=== PATIENT | female | born 1950 | race Caucasian/White ===

== ENCOUNTER 2020-06-15 08:05 | Outpatient (CLI) | payer MEDICARE, SELFPAY ==
--- NOTE | ~2020-06-15 | US_ITS ---
EXAMINATION: US right upper quadrant EXAM DATE: 06/15/2020 09:05 INDICATION: Nausea. Right upper quadrant pain. TECHNIQUE: Multiple grayscale and Doppler images of the abdomen right upper quadrant were obtained (b y a technologist who performed the scan) and subsequently reviewed. There is no prior study for [place]. FINDINGS: The pancreatic head and body are normal in appearance. The pancreatic tail is not visualized. The l iver has normal echogenicity and contour. There are no focal liver lesions identified. There is no evidence of intrahepatic biliary duct dilation. Portal venous flow was seen in the hepatopedal, nor mal direction and has normal Doppler waveform. No right-sided hydronephrosis. Common bile duct measures 2 mm, which is normal. The gallbladder wall is normal in thickness, with ex pected amount of distention. No sonographic evidence of pericholecystic fluid. There is no cholelit hiases. Technologist performing exam reports patient did not demonstrate sonographic Alexandra's sign. Please note that this sign is less reliable in patients who have received pain medication. IMPRESSION: 1. Unremarkable abdominal ultrasound exam. Reviewed, dictated and finalized at location B.
== END 2020-06-15 08:06 | disposition home or self-care (01) ==
PROVIDERS: PCP Internal Medicine; Visit Provider Internal Medicine
DX: R11.0 Nausea (principal)
CPT/HCPCS: 76705

== ENCOUNTER 2022-08-23 16:12 | Inpatient (IN) | payer MEDICARE, SELFPAY ==
[2022-08-23] VITALS (9 sets, daily range): BP systolic 103–145; BP diastolic 60–77; PULSE 85–102; RESP 14–30; TEMP 36.9–37.7; O2SAT 91–97; BMI 27.8
--- NOTE | ~2022-08-23 | US_ITS ---
EXAMINATION:US venous doppler LE BI INDICATION:Thrombosis of the ovarian vein. TECHNIQUE: Multiple grayscale, color flow and Doppler images of the right and left lower extremity de ep venous systems were obtained and reviewed. COMPARISON:No prior studies for comparison. FINDINGS: The common femoral, superficial femoral and popliteal veins demonstrate normal respiratory variation, augmentation and compressibility. Color flow is also seen within the posterior tibial, pe roneal, greater saphenous and profunda veins. IMPRESSION: 1: No lower extremity deep venous thrombosis. Reviewed, dictated and finalized at location A.
--- NOTE | ~2022-08-23 | CT_ITS ---
EXAMINATION: CT abdomen pelvis w con DATE: 08/23/2022 17:58 INDICATION: Generalized abdominal pain. TECHNIQUE: Computed tomography (CT) of the abdomen and pelvis was performed with 100 mL Omnipaque 350 intravenous contrast. Automated exposure control and iterative reconstruction technique were employe d. The dose-length product was 598.39 mGy-cm. COMPARISON: Ultrasound 06/15/2020 FINDINGS: The visualized portions of the lung bases demonstrate mild atelectasis. No pleural effusion . The heart size is normal. No pericardial effusion. The liver and spleen are normal. The gallbladder is normal in size. Gallbladder wall thickening is noted. The pancreas, adrenal glands, and kidneys a re normal. There is a left inguinal hernia containing fat. There is diverticulosis of the colon witho ut evidence of diverticulitis. The appendix is normal. Left ovarian vein is dilated. There is thrombu s in left ovarian vein. There are no pathologically enlarged lymph nodes. There is no free intraperit sesay fluid. There is severe thoracic and lumbar spondylosis. IMPRESSION: 1. Thrombosis of left ovarian vein. 2. Gallbladder wall thickening, which may be seen with interstitial edema, chronic liver disease, or chronic cholecystitis. 3. Left inguinal hernia containing fat. Reviewed, dictated and finalized at location A. IMPRESSION: 1. Thrombosis of left ovarian vein. 2. Gallbladder wall thickening, which may be seen with interstitial edema, grinder chipper olivia liver disease, or chronic cholecystitis. 3. Left inguinal hernia containing fat.
--- NOTE | ~2022-08-23 | XR_ITS ---
EXAMINATION: XR chest 1V portable INDICATION: Cough TECHNIQUE: Portable AP chest at 1716 hours COMPARISON: None available FINDINGS: The lungs are free of acute opacities. No pleural effusion or pneumothorax. The cardiomedia stinal silhouette is normal. IMPRESSION: 1. No acute cardiopulmonary abnormality. Reviewed, dictated and finalized at location A.
--- NOTE | ~2022-08-23 | US_ITS ---
US right upper quadrant INDICATION: Right upper quadrant pain PROCEDURE: Realtime right upper abdominal ultrasound. COMPARISON: No prior studies for comparison. FINDINGS: The pancreas is normal without focal mass or pancreatic ductal dilation. Liver echotexture is normal without focal mass or intrahepatic biliary dilatation. There is normal directional flow i n the portal vein. There is mild gallbladder wall thickening with internal sludge. No definite gallstones are identified . Common bile duct measures 4 mm. No sonographic Alexandra's sign. IMPRESSION: 1: Gallbladder sludge with gallbladder wall thickening. No biliary dilatation. Reviewed, dictated and finalized at location A.
--- NOTE | ~2022-08-23 | US_ITS ---
EXAMINATION: US pelvic complete w TV DATE: 08/24/2022 13:37 INDICATION: Left lower quadrant pain. Comparison:No prior studies for comparison. TECHNIQUE: Multiple transabdominal sonographic images of the pelvis performed. Examination limited du e to poor bladder filling. FINDINGS: The uterus measures 8.1 x 4.5 x 5 cm. The endometrium is not identified for measurement. Th e ovaries are not visualized. There is no free fluid in the pelvis. There are no abnormal masses seen on either side. IMPRESSION: 1. Unremarkable pelvic ultrasound. Limited study. Reviewed, dictated and finalized at location A.
--- NOTE | 2022-08-23 16:40 | PC.NURSE ---
Pt attempted to provide urine sample but unable to at this time
[2022-08-23] MEDS: SODIUM CHLORIDE 0.9% IV 1,000 ML 999 ML IV CONT (16:49)
[2022-08-23] MEDS: ONDANSETRON INJ 4 MG/2 ML VIAL IV PUSH (16:50)
[2022-08-23 16:59] LABS: Basophils Percent Auto 0.1 % (0.2-1.2); Eosinophils Absolute Auto 0.1 K/mm3 (0-0.3); Eosinophils Percent Auto 0.7 % (0-4.4); Hematocrit 37.2 % (37.0-47.0); Hemoglobin 12.5 g/dL (12.0-15.0); Immature Granulocyte Absolute 0.09 K/mm3 (0.00-0.031); Immature Granulocyte Percent A 1.2 % (0-0.5); Lymphocytes Absolute Auto 2.06 K/mm3 (0.9-3.2); Lymphocytes Percent Auto 28.5 % (18.3-44.2); Mean Corpuscular HGB Conc 33.6 g/dl (32-36); Mean Corpuscular Hemoglobin 30.4 pg (26-34); Mean Corpuscular Volume 90.5 fl (80-100); Mean Platelet Volume 9.1 fl (7.4-10.4); Monocytes Absolute Auto 0.6 K/mm3 (0.1-0.6); Monocytes Percent Auto 8.7 % (2.6-8.5); Neutrophils Absolute Auto 4.4 K/mm3 (1.3-6.7); Neutrophils Percent Auto 60.8 % (45.5-73.1); Platelet Count Result 318 k/mm3 (150-375); Red Blood Count 4.11 M/mm3 (4.2-5.4); Red Cell Distribution Width 12.7 % (11.5-14.5); White Blood Count 7.2 K/mm3 (4.5-10.0)
[2022-08-23 17:09] LABS: Alanine Aminotransferase 47 U/L (6-35); Alkaline Phosphatase 83 U/L (38-126); Anion Gap 10 mmol/L (8-16); Aspartate Amino Transferase 57 U/L (14-36); Bilirubin,Total 0.6 mg/dL (0.2-1.3); Blood Urea Nitrogen 13 mg/dL (7-17); Calcium 8.5 mg/dL (8.4-10.2); Carbon Dioxide 26 mmol/L (22-30); Chloride 102 mmol/L (98-107); Estimated CRCL calculation 44 ml/min; Estimated Glomerular Filt Rate 55; Glucose 108 mg/dL (65-110); Lipase 788 U/L (23-300); Magnesium 1.5 mg/dL (1.6-2.3); Sodium 138 mmol/L (137-145)
[2022-08-23 17:36] LABS: SARS-CoV-2 RNA PCR Negative
[2022-08-23] MEDS: LACTATED RINGERS 1,000 ML 999 ML IV CONT (18:08)
[2022-08-23 18:28] LABS: Appearance Urine Clear (Clear); Bilirubin Urine Negative (Negative); Blood Urine 3+ (Negative); Color Urine Yellow (Yellow); Glucose Urine UA Negative (Negative); Ketones Urine Negative (Negative); Leukocyte Esterase Ur Trace LEU/UL (Negative); Nitrate Urine Negative (Negative); Protein Urine Trace mg/dL (Negative); Specific Grav Ur <= 1.005 (1.001-1.035); Urobilinogen Urine 0.2 mg/dL (<2.0)
[2022-08-23 18:31] LABS: Mucus Urine Rare /lpf; RBC Urine 21-50 /hpf (0-2); Squamous Epithelial Cell Urine Occasional /hpf (Few); WBC Urine 31-50 /hpf
[2022-08-23 18:32] LABS: Add Urine Microscopic? YES
[2022-08-23 18:58] LABS: Influenza A QL RT-PCR Negative (Negative); Influenza B QL RT-PCR Negative (Negative)
--- NOTE | 2022-08-23 19:46 | ED.NAVMDI ---
HPI - Nausea/Vomiting/Diarrhea General Chief complaint: Nausea/Vomiting/Diarrhea Stated complaint: diarrhea, decreased appetite Time Seen by Provider: 08/23/22 16:29 History of Present Illness HPI Narrative: Patient is a 72-year-old female who presents ER with persistent nausea as well as urinary frequency and urgency. Patient has had nausea for approximately 1 month. Initially seen by her PCP and started on a PPI. Patient then went to [place] for vacation and became very ill with nausea vomiting diarrhea. She was in bed for several days and cannot get up to enjoy herself. She then returned home where she has been feeling persistently nauseous and ill. She is not been eating due to this discomfort. Patient has had no fevers or chills. Diarrhea his abated. She began having burning urination and urinary frequency today. She is also obtained some antiemetics which have not helped her nausea. Related Data Home Medications Medication Instructions Recorded Confirmed cyclosporine 0.05 % eye drops in a 1 drp EACH EYE Q12H 08/23/22 08/23/22 dropperette (Restasis) ezetimibe 10 mg tablet 10 mg PO QAM 08/23/22 08/23/22 levothyroxine 25 mcg tablet 25 mcg PO DAILY 08/23/22 08/23/22 pravastatin 20 mg tablet 20 mg PO HS 08/23/22 08/23/22 Allergies Allergy/AdvReac Type Severity Reaction Status Date / Time amoxicillin Allergy Mild rash Verified 08/23/22 16:54 Review of Systems Review of Systems: All systems reviewed & are unremarkable except as noted in HPI and below Constitutional: Constitutional: Denies chills, Reports fatigue and Denies fever(s) ENT: Denies nasal congestion and Denies sore throat Cardiovascular: Cardiovascular: Denies chest pain, Denies rapid heart rate and Denies radiating jaw, neck or arm pain Respiratory: Respiratory: Denies chest congestion, Denies cough and Denies dyspnea Gastrointestinal: Gastrointestinal: Denies abdominal pain, Reports diarrhea, Reports nausea and Reports vomiting Genitourinary: Genitourinary: Reports nocturia and Reports dysuria Musculoskeletal: Musculoskeletal: Denies arthralgias and Denies joint swelling PMF Past Medical History Medical History (Updated 08/23/22 @ 22:12 by Dustin Toledo MD) Dermatomyositis Surgical History Surgical History (Updated 08/23/22 @ 22:08 by Dustin Toledo MD) No pertinent past surgical history Family History Family History (Updated 08/23/22 @ 21:40 by Yomaira Michelle RN) Father Diabetes mellitus Chronic ITP (idiopathic thrombocytopenia) Grandparent Diabetes mellitus Social History Social History Smoking status: Never smoker Alcohol intake: current Drinks per week: 12 Substance use: never Has the Lack of Transportation Kept You From Medical Appointments or From Getting Medications?: No Within the Past 12 Months, Were You Worried Whether Your Food Would Run Out Before You Got Money to Buy More?: Never True What is Your Housing Situation Today?: I Have Housing Are You Worried That in the Next 2 Months, You May Not Have Your Own Housing to Live In?: No Do You Have Trouble Paying Your Heating Or Electricity Bill?: No Do You Have Trouble Paying For Medicines?: No Are You Currently Unemployed and Looking for Work?: No Highest Level of Education Completed: Master's Degree or Higher Do You Have Trouble With Childcare or the Care of a Family Member?: No Spiritual care concerns: No Exam Narrative: GENERAL: Well-appearing, well-nourished, and in no acute distress. HEAD: Normocephalic, atraumatic. EYES: PERRL and EOMI. ENT: Dry mucous membranes. CHEST: Clear to auscultation. No respiratory distress. HEART: Regular rate and rhythm. Normal peripheral pulses. ABDOMEN: Soft, tender palpation left lower quadrant with guarding, nondistended, normal active bowel sounds. EXTREMITIES: Normal range of motion. No edema. SKIN: Warm, dry, no rash. NEURO: Alert and oriented x3. PSYCH: Normal mood and affe
[2022-08-23] MEDS: POTASSIUM CHLORIDE 20 MEQ TABLET.ER PO (20:13)
[2022-08-23] MEDS: ENOXAPARIN 80 MG/0.8 ML SYRINGE 71 MG SUB-Q (20:13)
--- NOTE | 2022-08-23 20:15 | PM.IMHP ---
H&P: HPI History of Present Illness Date/Time: 08/23/22 20:15 Chief Complaint: Nausea and vomiting Narrative: This is a 72-year-old female with past medical history significant for dermatomyositis, hypothyroidism, type 2 diabetes mellitus, dyslipidemia. Patient comes to the emergency room after several days of generalized malaise, nausea, vomiting, diarrhea, poor appetite, chills recently came back from [place] where she was sick as well. Now the diarrhea has subsided. however patient has been having urinary frequency, urgency, pain and burning with urination. preliminary workup was significant for CT of abdomen and pelvis was reported as: IMPRESSION: 1. Thrombosis of left ovarian vein. 2. Gallbladder wall thickening, which may be seen with interstitial edema, chronic liver disease, or chronic cholecystitis. 3. Left inguinal hernia containing fat. a urinalysis showed numerous wbc's 30-50 per high-power field. patient was given a dose of Lovenox and Rocephin in the emergency room , has been admitted for further evaluation management and treatment. Review of Systems Review of Systems: Generalized malaise, nausea, vomiting, abdominal pain, urinary frequency, urinary urgency, chills, poor appetite, diarrhea. Constitutional: Constitutional: Reports chills, Reports malaise, Reports poor appetite and Reports weakness Eyes: Eyes: Denies change in vision ENT: Denies dysphagia, Denies vertigo, Denies dizziness and Denies odynophagia Cardiovascular: Cardiovascular: Denies chest pain and Denies leg edema Respiratory: Respiratory: Denies cough Gastrointestinal: Gastrointestinal: Reports abdominal pain, Denies dyspepsia, Denies heartburn, Reports diarrhea, Reports nausea and Reports vomiting Genitourinary: Genitourinary: Reports dysuria Musculoskeletal: Musculoskeletal: Denies joint swelling and Denies limited range of motion Integumentary/Breasts: Skin/Breast: Denies rash Neurologic: Denies vertigo, Denies dizziness, Denies focal weakness and Denies Sensory deficit (Neuro) Psychiatric: Psychiatric: Reports no additional psychiatric complaints and Reports as per HPI Endocrine: Endocrine: Denies cold intolerance, Denies flushing, Denies heat intolerance, Denies polyphagia, Denies polydipsia and Denies palpitations Hematologic/Lymphatic: Hematologic/Lymphatic: Reports no additional hematologic/lymphatic complaints and Reports as per HPI Allergic/Immunologic: Allergic/Immunologic: Reports no additional allergic/immunologic complaints and Reports as per HPI PMFSH Past Medical History Medical History (Updated 08/24/22 @ 00:11 by Eliana Loera MD) Dermatomyositis Surgical History Surgical History (Updated 08/23/22 @ 22:08 by Dustin Toledo MD) No pertinent past surgical history Family History Family History (Updated 08/23/22 @ 21:40 by Yomaira Michelle RN) Father Diabetes mellitus Chronic ITP (idiopathic thrombocytopenia) Grandparent Diabetes mellitus Social History Social History Smoking status: Never smoker Alcohol intake: current Drinks per week: 12 Substance use: never Has the Lack of Transportation Kept You From Medical Appointments or From Getting Medications?: No Within the Past 12 Months, Were You Worried Whether Your Food Would Run Out Before You Got Money to Buy More?: Never True What is Your Housing Situation Today?: I Have Housing Are You Worried That in the Next 2 Months, You May Not Have Your Own Housing to Live In?: No Do You Have Trouble Paying Your Heating Or Electricity Bill?: No Do You Have Trouble Paying For Medicines?: No Are You Currently Unemployed and Looking for Work?: No Highest Level of Education Completed: Master's Degree or Higher Do You Have Trouble With Childcare or the Care of a Family Member?: No Spiritual care concerns: No Meds Home Medications and Allergies Home Medications Medication Instructions Recorded Confirmed Type c
[2022-08-23] MEDS: SODIUM CHLORIDE 0.9% IV 1,000 ML 125 ML IV CONT (20:44)
--- NOTE | 2022-08-23 21:36 | ADMGEN ---
This patient, Joana Agudelo, was admitted to Medical Room 347-01. Patient/family oriented to hospital policies and general routines including ID bracelet, bed and alarms, visiting hours, pain management, procedures, bathroom and other care routines, personal items, smoking policy, room service/diet, and visiting hours. Information on how to activate the Rapid Response Team has been discussed. Patient/Family are encouraged to report perceived risks to care and to ask questions if they do not understand what they are told or what they should do.
[2022-08-24] MEDS: SODIUM CHLORIDE 0.9% IV 1,000 ML 125 ML IV CONT (04:50)
[2022-08-24 05:47] VITALS: BP 119/70; PULSE 93; RESP 18; TEMP 36.6; O2SAT 94
[2022-08-24] MEDS: LEVOTHYROXINE SODIUM 25 MCG TABLET PO (05:48)
[2022-08-24 08:48] LABS: INR 1.2; Prothrombin Time 14.3 Seconds (11.1-14.7)
[2022-08-24 08:49] LABS: Partial Thromboplastin Time 36.9 SECONDS (22.3-36.8)
[2022-08-24 09:10] LABS: Alanine Aminotransferase 37 U/L (6-35); Albumin Level 3.4 g/dL (3.5-5.1); Alkaline Phosphatase 58 U/L (38-126); Anion Gap 9 mmol/L (8-16); Aspartate Amino Transferase 40 U/L (14-36); Bilirubin,Total 0.3 mg/dL (0.2-1.3); Blood Urea Nitrogen 7 mg/dL (7-17); Calcium 7.6 mg/dL (8.4-10.2); Carbon Dioxide 24 mmol/L (22-30); Chloride 106 mmol/L (98-107); Estimated CRCL calculation 54 ml/min; Estimated Glomerular Filt Rate > 60; Glucose 99 mg/dL (65-110); Lipase 682 U/L (23-300); Magnesium 1.4 mg/dL (1.6-2.3); Potassium 3.3 mmol/L (3.4-5.0); Sodium 139 mmol/L (137-145)
[2022-08-24 09:31] LABS: Erythrocyte Sedimentation Rate > 140 mm/hr (0-20)
[2022-08-24] MEDS: SODIUM CHLORIDE 0.9% IV 1,000 ML 70 ML IV CONT (09:49)
[2022-08-24] MEDS: cycloSPORINE 0.4 ML OPHTH SOLUTION 1 DROP EACH EYE ×2 (09:50→20:29)
[2022-08-24] MEDS: ENOXAPARIN 80 MG/0.8 ML SYRINGE 70 MG SUB-Q ×2 (09:51→20:29)
--- NOTE | 2022-08-24 10:47 | PM.IMPN ---
Progress Note: A&P Assessment and Plan (1) UTI (urinary tract infection): Code(s): N39.0 - Urinary tract infection, site not specified Status: Acute Assessment and Plan: UA noted with 3+ blood, 21-50 red cells and 31-50 white cells. She has trace leukocyte esterase. Specimen is very dilute. Renal function is normal. Urine culture pending. She has been started on Rocephin. Continue the same. (2) Thrombosis of ovarian vein: Code(s): I82.890 - Acute embolism and thrombosis of other specified veins Status: Acute Assessment and Plan: CT of the abdomen pelvis shows a thrombosis of the left ovarian vein. Normally this is seen in young women during . In this situation, most likely this is related to dehydration. No significant abdominal pain. But also consider coagulopathy related to autoimmune disorder. She was started on Lovenox therapeutic dose. Will consult power station operator. Follow-up on pelvic imaging. PT and PTT are normal. ESR is greater than 140. Continue Lovenox. Check lower extremity venous Dopplers. Flagyl added since this can be infectious. (3) Cholecystitis, chronic: Code(s): K81.1 - Chronic cholecystitis Status: Acute Assessment and Plan: Patient by history states that she has evidence of chronic gallbladder disease. Gallbladder ultrasound 2 years ago was normal. CT scan on admission here does show gallbladder wall thickening and right upper quadrant ultrasound has been ordered. LFTs mildly elevated which could be fatty liver or related to her gastroenteritis but appears to be resolving. Follow-up on upper quadrant ultrasound. (4) Gastroenteritis: Code(s): K52.9 - Noninfective gastroenteritis and colitis, unspecified Status: Acute Assessment and Plan: Patient developed diarrhea with nausea and vomiting in max ago. These symptoms appear to be waning. She was dehydrated on admission and this seems to be better. Will stop IV fluids. Okay for regular diet once her ultrasound is done. (5) Elevated lipase: Code(s): R74.8 - Abnormal levels of other serum enzymes Status: Acute Assessment and Plan: Lipase elevated on admission. On repeat appears to be trending downward. No evidence of pancreatitis on imaging. Suspect this is related to above. 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 She is not on immunosuppressive agents. Subjective Date/time seen: 08/24/22 10:47 Interval history: 72yo female with dermatomyositis here for nausea and vomiting. Patient was ill while she was in [place] with diarrhea. This symptom has improved since returning home. There is no melena or hematochezia. Patient has developed dysuria. No vaginal discharge. No chest pain or shortness of breath. No cough prior to admission but does have a nonproductive cough that has developed since admission. No abdominal pain. Overall she is feeling much better and is requesting discharge. She does complain of burning in her right calf prior to admission but not currently. She has no history of lupus or polymyositis. Exam Narrative: AF 97.8 119/70 93 18 94% ra Gen - NARD Chest - few basilar rhonchi. Normal respiratory rate CV - RRR S1/S2 Abd - Soft, NT/ND, Positive BS Ext - No pedal edema. Negative Homans sign. Neuro - Alert and oriented. Nonfocal exam. Psych - Nml mood and affect Skin - Warm and dry Objective Data Vital Signs Vital Signs: Vital Signs - 24 hr 08/23/22 16:23 08/23/22 18:06 08/23/22 17:00 Temperature 99.9 F H Pulse Rate 101 H 102 H 92 Respiratory Rate 14 30 H 22 H Blood Pressure 135/76 143/77 H 135/66 Pulse Oximetry 97 96 96 Oxygen Delivery Room Air 08/23/22 18:06 08/23/22 19:00 08/23/22 19:15 Temperature Pulse Rate 102 H 94 101 H Respiratory Rate 2
[2022-08-24] MEDS: ACETAMINOPHEN 325 MG TABLET 650 MG PO (12:13)
[2022-08-24] MEDS: metroNIDAZOLE 250 MG TABLET 500 MG PO ×2 (12:14→17:02)
--- NOTE | 2022-08-24 12:56 | WPDCN ---
Assessment and Plan Assessment and plan (1) Thrombosis of ovarian vein: Code(s): I82.890 - Acute embolism and thrombosis of other specified veins Status: Acute Assessment and Plan: Ovarian vein thrombosis noted on CT scan. Occurrence of this abnormality unusual if not seen in the setting of , malignancy, or immediate postoperative. In and of themselves, not seen in the above settings, typically anticoagulation is not needed though there is not a lot of information in the literature to direct care in an isolated incident of ovarian vein thrombosis. Certainly agree with looking for other thrombotic abnormalities, and evaluation looking for other thrombotic events. Hematology/oncology consultation might also be helpful in this regard. Also directing further acute and chronic treatment would be based on results of the above testing /imaging. If I can be of any further assistance please let me know. HPI Data of Consult Date/Time: 08/24/22 12:56 Requesting Physician: Eliana Loera MD Primary Care Provider: Dustin Bolden, Consult Narrative Narrative: Joana Agudelo is a 72 year old female Admitted with nausea vomiting and generally feeling poorly. Upon admission found to have urinary tract infection, gallbladder sludge, and left ovarian vein thrombosis on CT scan. Other than the above-listed symptoms she denies any specific pelvic and/or abdominal pain specifically in the left lower quadrant. Today she is feeling better though she is still nauseous and while she is able to drink fluids does not have an appetite and has not had a lot of oral solid intake. Minimal exam reveals generalized tenderness in the abdominal area, though no guarding or rebound. Specifically no complaints of left or right abdominal discomfort. See assessment plan for further recommendations/ thoughts on this patient. [facility] Past Medical History Medical History (Updated 08/24/22 @ 10:52 by Elias Stein MD) Dermatomyositis Surgical History Surgical History (Updated 08/23/22 @ 22:08 by Dustin Toledo MD) No pertinent past surgical history Family History Family History (Updated 08/23/22 @ 21:40 by Yomaira Michelle RN) Father Diabetes mellitus Chronic ITP (idiopathic thrombocytopenia) Grandparent Diabetes mellitus Social History Social History Smoking status: Never smoker Alcohol intake: current Drinks per week: 12 Substance use: never Has the Lack of Transportation Kept You From Medical Appointments or From Getting Medications?: No Within the Past 12 Months, Were You Worried Whether Your Food Would Run Out Before You Got Money to Buy More?: Never True What is Your Housing Situation Today?: I Have Housing Are You Worried That in the Next 2 Months, You May Not Have Your Own Housing to Live In?: No Do You Have Trouble Paying Your Heating Or Electricity Bill?: No Do You Have Trouble Paying For Medicines?: No Are You Currently Unemployed and Looking for Work?: No Highest Level of Education Completed: Master's Degree or Higher Do You Have Trouble With Childcare or the Care of a Family Member?: No Spiritual care concerns: No Meds Home Medications and Allergies Home Medications Medication Instructions Recorded Confirmed Type cyclosporine 0.05 % eye drops in a 1 drp EACH EYE Q12H 08/23/22 08/23/22 History dropperette (Restasis) ezetimibe 10 mg tablet 10 mg PO QAM 08/23/22 08/23/22 History levothyroxine 25 mcg tablet 25 mcg PO DAILY 08/23/22 08/23/22 History pravastatin 20 mg tablet 20 mg PO HS 08/23/22 08/23/22 History Allergies Allergy/AdvReac Type Severity Reaction Status Date / Time amoxicillin Allergy Mild rash Verified 08/23/22 16:54 Vital Signs Vital Signs - 24 hr 08/23/22 16:23 08/23/22 18:06 08/23/22 17:00 Temperature 99.9 F H Pulse Rate 101 H 102 H 92 Respiratory Rate 14 30 H 22 H Blood Pressure 135/76 143/77 H 135/66
[2022-08-24 14:00] VITALS: BP 115/89; PULSE 87; RESP 18; TEMP 37.1; O2SAT 95
--- NOTE | 2022-08-24 17:52 | PM.CNGS ---
Assessment and Plan Assessment and plan (1) Abnormal CT of the abdomen: Code(s): R93.5 - Abnormal findings on diagnostic imaging of other abdominal regions, including retroperitoneum Status: Acute Assessment and Plan: I have reviewed the imaging and discussed the findings with the patient. I do not believe the gallbladder is the source of her current symptoms. She most likely has infectious enteritis related to her recent travel out of the country. This is not a surgical problem, therefore I will defer to the hospitalist for medical management. Her gallbladder ultrasound does show some mild gallbladder wall thickening and gallbladder sludge. This could be addressed further once she recovers from this episode of gastroenteritis. Would recommend a bland low-fat diet for now and could follow-up with patient as an outpatient. (2) Gastroenteritis: Code(s): K52.9 - Noninfective gastroenteritis and colitis, unspecified Status: Acute (3) Thrombosis of ovarian vein: Code(s): I82.890 - Acute embolism and thrombosis of other specified veins Status: Acute (4) UTI (urinary tract infection): Code(s): N39.0 - Urinary tract infection, site not specified Status: Acute History of Present Illness Consult details Consult date: 08/24/22 Reason for consult: other (Abnormal CT abdomen) Requesting physician: Dustin Toledo MD Narrative: this is a 72-year-old woman who presented to the emergency department yesterday with diarrhea for the past 5 days. She had 1 episode of nausea and vomiting early on when the symptoms started but denies any significant abdominal pain. She has a recent history of travel to [place] and the symptoms started while she was in [place]. She was feeling better a couple days after coming home, but then diarrhea worsened again and she was becoming more dehydrated. She did not have any symptoms like this prior to her travel to [place]. She does get some occasional nausea after eating heavier meals and this was being worked up prior to her recent travel. Currently she does not complain of any certain types of food that make the symptoms worse, but does tend to have diarrhea no matter what she eats. Nobody else that traveled with her became sick like this. Review of Systems Review of Systems: All systems reviewed & are unremarkable except as noted in HPI and below Constitutional: Constitutional: Denies chills and Denies fever(s) Eyes: Eyes: Denies change in vision ENT: Denies hearing loss, Denies neck pain and Denies sore throat Cardiovascular: Cardiovascular: Denies chest pain and Denies dyspnea Respiratory: Respiratory: Denies cough, Denies dyspnea and Denies wheezing Gastrointestinal: Gastrointestinal: Reports as per HPI Genitourinary: Genitourinary: Denies hematuria and Denies dysuria Musculoskeletal: Musculoskeletal: Denies arthralgias, Denies joint swelling and Denies neck pain Allergic/Immunologic: Allergic/Immunologic: Denies wheezing [facility] Past Medical History Medical History Dermatomyositis Surgical History Surgical History No pertinent past surgical history Family History Family History Father Diabetes mellitus Chronic ITP (idiopathic thrombocytopenia) Grandparent Diabetes mellitus Social History Social History Smoking status: Never smoker Alcohol intake: current Drinks per week: 12 Substance use: never Has the Lack of Transportation Kept You From Medical Appointments or From Getting Medications?: No Within the Past 12 Months, Were You Worried Whether Your Food Would Run Out Before You Got Money to Buy More?: Never True What is Your Housing Situation Today?: I Have Housing Are You Worried That in the Next
--- NOTE | 2022-08-24 18:35 | PC.NURSE ---
Call made to Dr. Salinas, recruiting scheduler for a consult for Joana. is aware and will see her.
--- NOTE | 2022-08-24 19:53 | PDONCCN ---
HPI - Date of Consult Date/Time: 08/24/22 19:53 Requesting Physician: Eliana Loera MD Primary Care Provider: Dustin BoldenMD - Consult Narrative Narrative: Joana Agudelo is a 72 year old female with symptoms related to a UTI found to have an Ovarian vein thrombosis on CT- she has no precipitating surgery trauma no evidence of abdominal masses and no previous history of thrombotic events. She has no family history and had two uncomplicated pregnancies. Theresa is somewhat better on antibiotics. Review of Systems - Review of Systems All systems reviewed & are unremarkable except as noted in HPI and bel - Constitutional Reports body ache(s), Reports fatigue - Gastrointestinal Reports abdominal pain - Genitourinary Reports painful urination - Neurologic Reports weakness, Denies vertigo, Denies focal weakness, Denies sensory deficit [facility] Medical History: Medical History (Last Reviewed 08/24/22 @ 17:55 by Jason Vail DO) Dermatomyositis Surgical History: Surgical History (Last Reviewed 08/24/22 @ 17:55 by Jason Vail DO) No pertinent past surgical history Family History: Family History (Last Reviewed 08/24/22 @ 17:55 by Jason Vail DO) Father Diabetes mellitus Chronic ITP (idiopathic thrombocytopenia) Grandparent Diabetes mellitus - Social History Social History: Social History (Last Reviewed 08/24/22 @ 17:55 by Jason Vail DO) Alcohol Use: Alcohol intake: current Drinks per week: 12 Substance Use: Substance use: never Others: Spiritual care concerns: No Smoking Status: Smoking status: Never smoker Social Determinants of Health: Has the Lack of Transportation Kept You From Medical Appointments or From Getting Medications?: No Within the Past 12 Months, Were You Worried Whether Your Food Would Run Out Before You Got Money to Buy More?: Never True What is Your Housing Situation Today?: I Have Housing Are You Worried That in the Next 2 Months, You May Not Have Your Own Housing to Live In?: No Do You Have Trouble Paying Your Heating Or Electricity Bill?: No Do You Have Trouble Paying For Medicines?: No Are You Currently Unemployed and Looking for Work?: No Highest Level of Education Completed: Master's Degree or Higher Do You Have Trouble With Childcare or the Care of a Family Member?: No Exam - Vital Signs Vital Signs - 24 hr 08/23/22 20:04 08/23/22 20:15 08/23/22 21:49 Temperature 36.9 C Pulse Rate 97 94 85 Respiratory Rate 17 15 18 Blood Pressure 103/60 Pulse Oximetry 96 94 97 Oxygen Delivery 08/24/22 05:47 08/24/22 08:00 08/24/22 14:00 Temperature 36.6 C 37.1 C Pulse Rate 93 87 Respiratory Rate 18 18 Blood Pressure 119/70 115/89 Pulse Oximetry 94 95 Oxygen Delivery Room Air - Lab Results Laboratory Last Values WBC 7.2 K/mm3 (4.5-10.0) 08/23/22 16:50 RBC 4.11 M/mm3 (4.2-5.4) L 08/23/22 16:50 Hgb 12.5 g/dL (12.0-15.0) 08/23/22 16:50 Hct 37.2 % (37.0-47.0) 08/23/22 16:50 MCV 90.5 fl (80-100) 08/23/22 16:50 MCH 30.4 pg (26-34) 08/23/22 16:50 MCHC 33.6 g/dl (32-36) 08/23/22 16:50 RDW 12.7 % (11.5-14.5) 08/23/22 16:50 Plt Count 318 k/mm3 (150-375) 08/23/22 16:50 MPV 9.1 fl (7.4-10.4) 08/23/22 16:50 Immature Gran % (Auto) 1.2 % (0-0.5) H 08/23/22 16:50 Neut % (Auto) 60.8 % (45.5-73.1) 08/23/22 16:50 Lymph % (Auto) 28.5 % (18.3-44.2) 08/23/22 16:50 Morris % (Auto) 8.7 % (2.6-8.5) H 08/23/22 16:50 Eos % (Auto) 0.7 % (0-4.4) 08/23/22 16:50 Baso % (Auto) 0.1 % (0.2-1.2) L 08/23/22 16:50 Lymph # (Auto) 2.06 K/mm3 (0.9-3.2) 08/23/22 16:50 Morris # (Auto) 0.6 K/mm3 (0.1-0.6) 08/23/22 16:50 Eos # (Auto) 0.1 K/mm3 (0-0.3) 08/23/22 16:50 Baso # (Auto) 0.0 K/mm3 (0.0-0.1) 08/23/22 16:50 Abs Im
[2022-08-24 20:10] VITALS: BP 126/81; PULSE 85; RESP 20; TEMP 37.4; O2SAT 94
[2022-08-24] MEDS: PRAVASTATIN SODIUM 20 MG TABLET PO (20:29)
[2022-08-24] MEDS: HYDROcodone/acetaminophen (*CRX) 5-325 MG TABLET 1 TAB PO (20:29)
[2022-08-25] MEDS: metroNIDAZOLE 250 MG TABLET 500 MG PO ×4 (00:25→17:17)
[2022-08-25] MEDS: ONDANSETRON INJ 4 MG/2 ML VIAL IV PUSH ×3 (05:18→17:20)
[2022-08-25] MEDS: LEVOTHYROXINE SODIUM 25 MCG TABLET PO (05:18)
[2022-08-25 05:29] VITALS: BP 131/69; PULSE 83; RESP 18; TEMP 37.4; O2SAT 94
[2022-08-25 05:39] LABS: Hematocrit 33.8 % (37.0-47.0); Hemoglobin 11.3 g/dL (12.0-15.0); Mean Corpuscular HGB Conc 33.4 g/dl (32-36); Mean Corpuscular Hemoglobin 29.7 pg (26-34); Mean Corpuscular Volume 88.7 fl (80-100); Platelet Count Result 317 k/mm3 (150-375); Red Blood Count 3.81 M/mm3 (4.2-5.4); Red Cell Distribution Width 12.6 % (11.5-14.5); White Blood Count 8.3 K/mm3 (4.5-10.0)
[2022-08-25 05:49] LABS: Alanine Aminotransferase 36 U/L (6-35); Albumin Level 3.6 g/dL (3.5-5.1); Alkaline Phosphatase 68 U/L (38-126); Anion Gap 8 mmol/L (8-16); Aspartate Amino Transferase 42 U/L (14-36); Bilirubin,Total 0.4 mg/dL (0.2-1.3); Blood Urea Nitrogen 5 mg/dL (7-17); Calcium 7.9 mg/dL (8.4-10.2); Carbon Dioxide 24 mmol/L (22-30); Chloride 105 mmol/L (98-107); Estimated CRCL calculation 61 ml/min; Estimated Glomerular Filt Rate > 60; Glucose 104 mg/dL (65-110); Potassium 3.1 mmol/L (3.4-5.0); Sodium 137 mmol/L (137-145)
[2022-08-25] MEDS: cycloSPORINE 0.4 ML OPHTH SOLUTION 1 DROP EACH EYE ×2 (09:06→20:15)
[2022-08-25] MEDS: ENOXAPARIN 80 MG/0.8 ML SYRINGE 70 MG SUB-Q ×2 (09:07→20:15)
--- NOTE | 2022-08-25 10:23 | PM.IMPN ---
Progress Note: A&P Assessment and Plan (1) Gastroenteritis: Code(s): K52.9 - Noninfective gastroenteritis and colitis, unspecified Status: Acute Assessment and Plan: Patient developed diarrhea with nausea and vomiting in [place]. These symptoms appeared to be waning but probably related to the fact she took Imodium. She was dehydrated on admission related to this. She symptomatic lately felt better with the IV fluids. IV fluids have been stopped. Diarrhea has recurred. No evidence of colitis on the CT scan. Will check stool studies. Continue Flagyl (2) UTI (urinary tract infection): Code(s): N39.0 - Urinary tract infection, site not specified Status: Acute Assessment and Plan: UA noted with 3+ blood, 21-50 red cells and 31-50 white cells. She has trace leukocyte esterase. Specimen is very dilute. Renal function is normal. Urine culture negative. Will stop Rocephin. UTI ruled out (3) Thrombosis of ovarian vein: Code(s): I82.890 - Acute embolism and thrombosis of other specified veins Status: Acute Assessment and Plan: CT of the abdomen pelvis shows a thrombosis of the left ovarian vein. Normally this is seen in young women during . In this situation, most likely this is related to dehydration. No significant abdominal pain. Also consider coagulopathy related to autoimmune disorder. PT and PTT are normal. ESR is greater than 140 (but could be related to gastroenteritis). LE venous doppler negative. Pelvic US showing no acute findings. She was started on Lovenox therapeutic dose. Appreciate foot tender and Heme/Onc input. Continue Lovenox. Change to Eliquis when okay with Heme/Onc (4) Cholecystitis, chronic: Code(s): K81.1 - Chronic cholecystitis Status: Acute Assessment and Plan: Patient by history states that she has evidence of chronic gallbladder disease. Gallbladder ultrasound 2 years ago [address] normal. [address] scan on admission here does show gallbladder wall thickening. RUQ US showing GB sludge with GB wall thickening. GenSurg consulted but felt this was not causing any of her issues. LFTs mildly elevated which could be fatty liver or related to her gastroenteritis and are stable. (5) Elevated lipase: Code(s): R74.8 - Abnormal levels of other serum enzymes Status: Acute Assessment and Plan: Lipase elevated on admission. On repeat appears to be trending downward. No evidence of pancreatitis on imaging. Suspect this is related to above. 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 She is not on immunosuppressive agents. Subjective Date/time seen: 08/25/22 10:23 Interval history: 72yo female with dermatomyositis here for nausea and vomiting. Patient had diarrhea while she was in [place] and when she returned. She took Imodium with benefit. Diarrhea however has recurred and began yesterday. Appears to be worse with eating. She has nausea but no vomiting. No abdominal pain. No antibiotics prior to admission or prior to going in [place]. She had 8-9 bowel movements yesterday and 4-5 since midnight. No melena or hematochezia. Exam Narrative: AF 99.4 131/69 83 18 94% ra Gen - NARD Chest - CTA bilaterally, nml RR CV - RRR S1/S2 Abd - Soft, NT/ND, Positive BS Ext - No pedal edema. Neuro - Alert and oriented. Nonfocal exam. Psych - Nml mood and affect Skin - Warm and dry Objective Data Vital Signs Vital Signs: Vital Signs - 24 hr 08/24/22 14:00 08/24/22 20:10 08/25/22 05:29 Temperature 98.7 F 99.4 F 99.4 F Pulse Rate 87 85 83 Respiratory Rate 18 20 18 Blood Pressure 115/89 126/81 131/69 Pulse Oximetry 95 94 94 Oxygen Delivery 08/25/22 08:00 Temperature Pulse Rate Respiratory Rate Blood Pressure Pulse Oximetry Oxygen Delivery Room Air
[2022-08-25 14:00] VITALS: BP 126/66; PULSE 81; RESP 16; TEMP 37.2; O2SAT 94
[2022-08-25] MEDS: PRAVASTATIN SODIUM 20 MG TABLET PO (20:15)
[2022-08-25] MEDS: MELATONIN 3 MG TABLET PO (20:15)
[2022-08-25 21:29] LABS: Toxigenic C. Diff NEGATIVE (NEGATIVE)
[2022-08-25 22:00] VITALS: BP 107/62; PULSE 77; RESP 16; TEMP 36.7; O2SAT 95
[2022-08-26] MEDS: metroNIDAZOLE 250 MG TABLET 500 MG PO ×3 (00:14→12:47)
[2022-08-26 06:00] VITALS: BP 106/60; PULSE 72; RESP 16; TEMP 36.7; O2SAT 95
[2022-08-26] MEDS: LEVOTHYROXINE SODIUM 25 MCG TABLET PO (06:00)
[2022-08-26 06:27] LABS: Alanine Aminotransferase 36 U/L (6-35); Albumin Level 3.4 g/dL (3.5-5.1); Alkaline Phosphatase 64 U/L (38-126); Anion Gap 11 mmol/L (8-16); Aspartate Amino Transferase 45 U/L (14-36); Bilirubin,Total 0.4 mg/dL (0.2-1.3); Blood Urea Nitrogen 6 mg/dL (7-17); Calcium 8.1 mg/dL (8.4-10.2); Carbon Dioxide 25 mmol/L (22-30); Chloride 102 mmol/L (98-107); Estimated CRCL calculation 61 ml/min; Estimated Glomerular Filt Rate > 60; Glucose 105 mg/dL (65-110); Lipase 721 U/L (23-300); Potassium 2.9 mmol/L (3.4-5.0); Sodium 138 mmol/L (137-145)
[2022-08-26 08:43] LABS: Magnesium 1.6 mg/dL (1.6-2.3)
[2022-08-26] MEDS: cycloSPORINE 0.4 ML OPHTH SOLUTION 1 DROP EACH EYE (09:07)
[2022-08-26] MEDS: ENOXAPARIN 80 MG/0.8 ML SYRINGE 70 MG SUB-Q (09:07)
[2022-08-26] MEDS: POTASSIUM CHLORIDE 20 MEQ TABLET PO (09:07)
[2022-08-26] MEDS: POTASSIUM CHLORIDE 20 MEQ TABLET 40 MEQ PO (09:07)
[2022-08-26] MEDS: MAGNESIUM SULF 2 GM/WATER 50ML 2 GM/50 ML BAG IVPB (09:59)
[2022-08-26 12:37] LABS: Magnesium 2.4 mg/dL (1.6-2.3); Potassium 3.9 mmol/L (3.4-5.0)
--- NOTE | 2022-08-26 12:55 | PM.DS ---
DS: Admitting Diagnosis Discharge Date 08/26/22 Admitting Diagnosis Nausea and Vomiting DS: Discharge Diagnosis Discharge Diagnosis (1) Gastroenteritis: Code(s): K52.9 - Noninfective gastroenteritis and colitis, unspecified Status: Acute (2) Thrombosis of ovarian vein: Code(s): I82.890 - Acute embolism and thrombosis of other specified veins Status: Acute (3) Cholecystitis, chronic: Code(s): K81.1 - Chronic cholecystitis Status: Acute (4) Elevated lipase: Code(s): R74.8 - Abnormal levels of other serum enzymes Status: Acute (5) Dermatomyositis: Code(s): M33.90 - Dermatopolymyositis, unspecified, organ involvement unspecified Status: Acute DS: Summary Hospital Course Reason for hospitalization: 72yo female with dermatomyositis here for nausea and vomiting. Please see H&P for details. Hospital Course: Patient developed diarrhea with nausea and vomiting in [place]. The diarrhea appeared to be waning due to the fact she took Imodium. She presented with nausea and vomiting. She was dehydrated on admission.? CT of the abdomen pelvis shows a thrombosis of the left ovarian vein.? Normally this is seen in young women during .? In this situation, most likely this is related to dehydration but consider coagulopathy related to autoimmune disorder.? No significant abdominal pain.?PT and PTT were normal.? ESR is greater than 140 (but could be related to gastroenteritis). BALDEMAR pending. LE venous doppler negative for DVT. Pelvic US showing no acute findings. She was started on Lovenox therapeutic dose.?porcelain turner and Heme/Onc consulted and appreciate their input. Heme/Onc recommended routine Eliquis dosing for VTE disease so changed to Eliquis at discharge. We started IV fluids and she had clincal improvement. Diarrhea recurred while hospitalized. She was already started on Flagyl which we continued. Stool for CDiff negative. Other stool studies pending. UA noted but UCx negative; UTI ruled out. Patient by history states that she has evidence of chronic gallbladder disease.? Gallbladder ultrasound 2 years ago was normal.? CT scan on admission here does show gallbladder wall thickening. RUQ US showing GB sludge with GB wall thickening. GenSurg consulted but felt this was not causing any of her issues. LFTs mildly elevated which could be fatty liver or related to her gastroenteritis. LFTs remained stable on repeat. Lipase elevated on admission.? On repeat, the value waxed/waned.? No evidence of pancreatitis on imaging.? Suspect this is related to above. She was eating and tolerating this. She overall did well and was able to be discharged home on 08/26/22. Status at Discharge Cognitive/behavioral status at discharge: Stable Time Spent with Patient Time attestation: Total time spent providing and/or coordinating discharge services: 35 minutes Time spent: Greater than 30 minutes Exam Narrative: AF 98.0 106/60 72 16 95% ra Gen - NARD Chest - CTA bilaterally, nml RR CV - RRR S1/S2 Abd - Soft, NT, Positive BS, mild LLQ pain (by report) but no guarding or rebound Ext - No pedal edema. Psych - Nml mood and affect Skin - Warm and dry DS: Data Data Completed and Pending Labs on day of discharge: Labs from last 24 hours 08/26/22 08/26/22 08/26/22 12:12 06:04 06:02 Sodium 138 Potassium 3.9 2.9 L Chloride 102 Carbon Dioxide 25 Anion Gap 11 BUN 6 L Creatinine 0.70 Estim Creat Clear Calc 61 Estimated GFR > 60 Glucose 105 Calcium 8.1 L Magnesium 2.4 H 1.6 Total Bilirubin 0.4 AST 45 H ALT 36 H Alkaline Phosphatase 64 Total Protein 6.0 L Albumin 3.4 L Lipase 721 H C. difficile (PCR) Ova & Parasites 08/25/22 08/25/22 13:03 13:03 Sodium Potassium Chloride Carbon Dioxide Anion Gap BUN Creatinine Estim Creat Clear Calc Estimated GFR Glucose Calcium Magnesium
[2022-08-26 14:09] LABS: HAV RESULT Negative (Negative)
--- NOTE | 2022-08-28 09:49 | PC.NURSE ---
Hep A IgM is negative. Stool crypto and Giardia are both negative. Dr. Sarita pratt.
[2022-08-29 11:40] LABS: Anti Nuclear Antibody Pattern Nuclear, Speckled
== END 2022-08-26 15:00 | disposition home or self-care (01) | DRG 392 ==
LOC: ANHED 17:11 → ANH3MED 20:54
PROVIDERS: Admitting Provider Internal Medicine; Emergency Provider Emergency Medicine; PCP Internal Medicine; Visit Provider Internal Medicine
DX: K52.9 Noninfective gastroenteritis and colitis, unspecified (principal); I82.890 Acute embolism and thrombosis of other specified veins; M33.13 Other dermatomyositis without myopathy; K81.1 Chronic cholecystitis; R74.8 Abnormal levels of other serum enzymes; E86.0 Dehydration; E78.5 Hyperlipidemia, unspecified; E03.9 Hypothyroidism, unspecified; E11.9 Type 2 diabetes mellitus without complications
CPT/HCPCS: 36415; 71045; 74177; 76705; 76830; 76856; 80053; 81001; 83690; 83735; 84132; 85025; 85027; 85610; 85652; 85730; 86038; 86039; 86709; 87045; 87081; 87086; 87088; 87177; 87209; 87269; 87272; 87427; 87493; 87502; 89055; 93970; 96361; 96365; 96372; 96375; 96376; 99285; A9270; G0378; J0131; J0696; J1650; J2405; J3475; J7030; J7120; Q9967; U0003; U0005

== ENCOUNTER 2022-09-12 08:15 | Outpatient (CLI) | payer MEDICARE, SELFPAY ==
--- NOTE | ~2022-09-12 | NM_ITS ---
EXAMINATION: NM hepatobiliary wo pharm DATE: 09/12/2022 14:06 INDICATION: Chronic cholecystitis. COMPARISON: CT abdomen and pelvis 08/23/2022, ultrasound 08/24/2022 TECHNIQUE: 4.9 mCi Tc-99m mebrofenin (Choletec) was administered intravenously. Scintigraphic images of the abdomen were obtained for one hour. Delayed images were obtained at 4 hours. FINDINGS: There is normal clearance of radiotracer from the blood pool. There is homogeneous tracer u ptake by the liver. Activity progresses to the bowel. There is no activity in the gallbladder. IMPRESSION: 1. Acute cholecystitis. Reviewed, dictated and finalized at location A. PERSON IMPRESSION: 1. Acute cholecystitis.
== END 2022-09-12 08:16 | disposition home or self-care (01) ==
PROVIDERS: PCP Internal Medicine; Visit Provider Internal Medicine
DX: K81.0 Acute cholecystitis (principal)
CPT/HCPCS: 78226; A9537

== ENCOUNTER 2022-10-02 06:39 | Outpatient (CLI) | payer MEDICARE, SELFPAY ==
--- NOTE | ~2022-10-02 | CT_ITS ---
EXAMINATION: CT abdomen pelvis w con DATE: 10/02/2022 07:17 INDICATION: Ovarian vein thrombosis follow-up TECHNIQUE: Computed tomography (CT) of the abdomen and pelvis was performed with 100 CC Omnipaque 350 intravenous contrast. Automated exposure control and iterative reconstruction technique were employe d. Exam dose: 389.80 mGy-cm total exam DLP. COMPARISON: 08/23/2022 CT abdomen pelvis 08/24/2022 right upper quadrant abdominal ultrasound examination 08/24/2022 pelvic ultrasound examination 09/12/2022 radionuclide hepatobiliary scan FINDINGS: Mild discoid atelectasis or scarring in the dependent right lower lobe. The lung bases are clear of infiltrate or consolidation. Normal heart size. No pericardial or pleural effusion. Diffuse hepatic steatosis. No hepatic, splenic, pancreatic, and adrenal or renal space-occupying mass lesion is detected. No ureteral calculus or hydroureteronephrosis. Bilateral prominent adnexal veins there is interval resolution of thrombus within the left ovarian ve in since 08/23/2022. Normal caliber and minimal atherosclerotic calcification of the abdominal aorta. No intraperitoneal o r retroperitoneal or pelvic mass lesion or adenopathy or ascites. Uterus and urinary bladder are unre markable. Small fat-containing left inguinal hernia. Diverticulosis of left and right colon; no CT evidence of diverticulitis. Prominent degenerative change in the lower thoracic spine. Severe degenerative disc disease at L4-5. No suspicious osteolytic or osteoblastic lesions are noted. IMPRESSION: Resolution of thrombus within left ovarian vein since 08/15/2022 Reviewed, dictated and finalized at Location A. Reviewed, dictated and finalized at location B. R CALIBRATOR
== END 2022-10-02 06:40 | disposition home or self-care (01) ==
PROVIDERS: PCP Internal Medicine; Visit Provider Internal Medicine Hematology & Oncology
DX: I82.890 Acute embolism and thrombosis of other specified veins (principal)
CPT/HCPCS: 74177; Q9967

== ENCOUNTER 2022-10-23 15:28 | Outpatient (CLI) | payer MEDICARE, SELFPAY ==
--- NOTE | ~2022-10-23 | US_ITS ---
EXAMINATION: US venous doppler LE RT DATE: 10/23/2022 16:25 INDICATION: Right lower limb pain TECHNIQUE: Grayscale ultrasound images without and with compression and Doppler ultrasound images of the right lower extremity veins were obtained. COMPARISON: None. FINDINGS: The visualized portions of right common femoral vein, profunda (deep) femoral vein, femoral vein, pop liteal vein, peroneal trunk, posterior tibial veins, peroneal veins and gastrocnemius vein and greate r saphenous vein outflow are patent. Small Caballero's cyst at the right popliteal fossa. IMPRESSION: 1. No deep venous thrombosis in the right lower limb. 2. Small Caballero's cyst. Reviewed, dictated and finalized at location A. [employer]
--- NOTE | ~2022-10-23 | XR_ITS ---
EXAM: XR shoulder LT min 2V DATE: 10/23/2022 16:26 HISTORY: PAIN X2 MONTHS, NO INJURY, DIF TO RAISE ABOVE HEAD . COMPARISON: None available. FINDINGS: Normal mineralization. No fracture or dislocation. No lytic or blastic lesion. Mild degene rative change in the AC joint and glenohumeral joint. Small fractured enthesophyte at the tip of the acromion. No erosion or periosteal change. Soft tissues within normal limits. IMPRESSION: Mild degenerative change in the AC joint and glenohumeral joint. Reviewed, dictated and finalized at location K. I/85
== END 2022-10-23 15:29 | disposition home or self-care (01) ==
PROVIDERS: PCP Internal Medicine; Visit Provider Internal Medicine
DX: M19.012 Primary osteoarthritis, left shoulder (principal); M71.21 Synovial cyst of popliteal space [Baker], right knee
CPT/HCPCS: 73030; 93971

== ENCOUNTER → 2023-05-29 11:39 | Outpatient (CLI) | payer MEDICARE, SELFPAY ==
--- NOTE | ~2023-05-29 | MM_ITS ---
EXAMINATION: MM screening scott BI w flora HISTORY: Screening mammogram TECHNIQUE: Craniocaudal and mediolateral oblique 3-D tomosynthesis images were obtained and synthetic 2-D images were generated. CAD analysis was submitted and interpreted. COMPARISON: No prior mammogram is available for comparison at this institution. BREAST PARENCHYMAL COMPOSITION: The breasts are almost entirely fatty. FINDINGS: Benign-appearing intramammary lymph node in the upper outer right breast. There is no evide nce of suspicious mass, calcification, or architectural distortion to suggest malignancy in either br east. There has been no suspicious interval change. IMPRESSION: 1. No mammographic evidence of malignancy. 2. Recommend routine screening mammography in one year. BI-RADS Category 1: Negative Reviewed, dictated and finalized at location A.
== END ==
PROVIDERS: PCP Advanced Practice Midwife; Visit Provider Advanced Practice Midwife
DX: Z12.31 Encounter for screening mammogram for malignant neoplasm of breast (principal)
CPT/HCPCS: 77063; 77067

== ENCOUNTER → 2023-06-16 12:15 | Outpatient (CLI) | payer MEDICARE, SELFPAY ==
--- NOTE | ~2023-06-16 | DEXA_ITS ---
Bone Density Report Name: NGOZI NIX Age: 72 Sex: Female Ethnicity: White Date of : 1950 Indication: postmenopausal; screening for osteoporosis; height loss; history of glucocorticoids; Referring Provider: Radha Metzger Study: Bone densitometry was performed. Exam Date: June 16, 2023 Accession number: [id number] Bone Density: Region BMD T-score Z-score Classification AP Spine (L1, L2, L3) 1.174 1.4 3.5 Normal Femoral Neck (Left) 0.835 -0.1 1.7 Normal Total Hip (Left) 0.966 0.2 1.8 Normal Femoral Neck (Right) 0.841 -0.1 1.8 Normal Total Hip (Right) 0.975 0.3 1.8 Normal Total Hip Mean 0.971 0.3 1.8 Normal World Health Organization criteria for BMD impression classify patients as: Normal (T-score at or above -1.0), Osteopenia (T-score between -1.0 and -2.5), or Osteoporosis (T-score at or below -2.5). 10-year Fracture Risk: FRAX not reported because: All T-scores for Spine Total, Hip Total, Femoral Neck at or above -1.0 Clinical Information Provided by Patient: Has taken Glucocorticoids Has used the following medications: Vitamin D, Calcium Patient maximum height was 64 Menopause Age: 42 Drinks caffeinated beverages Onset of menses at age 16 Number of children 2 Impression: The patient has normal bone mass. The patient has risk factors, including: history of glucocorticoid therapy. Discussion: BONE DENSITY IS ABOVE THE MINIMUM DESIRABLE LEVEL AT ALL SKELETAL SITES TESTED. This patient?s bone mineral density is above the minimum desirable level (T-score -1.0 or better) at all sites measured. The patient should follow a healthful lifestyle (good nutrition with adequate calcium and vitamin D, and appropriate weight-bearing exercise). Follow-Up: Consider repeating this study in 5 years or sooner if there is some new clinical indication. Reported by: SATURNINO on 06/16/2023 12:33:00 PM. Reviewed, dictated and finalized at location APaul MOHAMUD
== END ==
PROVIDERS: PCP Internal Medicine; Visit Provider Advanced Practice Midwife
DX: Z78.0 Asymptomatic menopausal state (principal)
CPT/HCPCS: 77080

== ENCOUNTER 2023-10-24 08:21 | Emergency (ER) | payer MEDICARE, SELFPAY ==
[2023-10-24 08:40] VITALS: BP 121/80; PULSE 103; RESP 16; TEMP 36.6; O2SAT 97
--- NOTE | 2023-10-24 08:52 | ED.URI ---
HPI - URI/Sore Throat General Chief Complaint: Ear Stated Complaint: Ear Infection Time Seen by Provider: 10/24/23 08:52 Source: patient, RN notes reviewed and old records reviewed Mode of arrival: ambulatory Limitations: no limitations History of Present Illness HPI Narrative: 73-year-old male presents to the [facility] with complaints of left ear pain or fullness. Symptoms started Friday. Reports in decreased energy, decreased appetite. No treatment prior to arrival Related Data Home Medications Medication Instructions Recorded Confirmed cyclosporine 0.05 % eye drops in a 1 drp EACH EYE Q12H 08/23/22 10/24/23 dropperette (Restasis) ezetimibe 10 mg tablet 10 mg PO QAM 08/23/22 10/24/23 pravastatin 20 mg tablet 20 mg PO HS 08/23/22 10/24/23 levothyroxine 50 mcg tablet 50 mcg PO DAILY 10/24/23 10/24/23 Allergies Allergy/AdvReac Type Severity Reaction Status Date / Time amoxicillin Allergy Mild rash Verified 10/24/23 09:10 Review of Systems Review of Systems: All systems reviewed & are unremarkable except as noted in HPI and below Constitutional: Constitutional: Reports as per HPI Eyes: Eyes: Reports no additional eye complaints ENT: Reports as per HPI and Reports otalgia Cardiovascular: Cardiovascular: Reports no additional cardiovascular complaints, Denies chest pain and Denies dyspnea Respiratory: Respiratory: Reports no additional respiratory complaints, Denies chest congestion, Denies cough and Denies dyspnea Gastrointestinal: Gastrointestinal: Reports no additional gastrointestinal complaints, Denies abdominal pain, Denies nausea and Denies vomiting Musculoskeletal: Musculoskeletal: Reports no additional musculoskeletal complaints Integumentary/Breasts: Skin/Breast: Reports system reviewed and no additional complaints, except as docu Neurologic: Reports system reviewed and no additional complaints, except as documented Psychiatric: Psychiatric: Reports no additional psychiatric complaints Allergic/Immunologic: Allergic/Immunologic: Reports no additional allergic/immunologic complaints PMFSH Past Medical History Medical History Dermatomyositis Surgical History Surgical History No pertinent past surgical history Family History Family History Father Diabetes mellitus Chronic ITP (idiopathic thrombocytopenia) Grandparent Diabetes mellitus Social History Social History Smoking status: Never smoker Alcohol intake: current Drinks per week: 12 Substance use: never Lack of Transportation: No Lack of Food: Never True Current Housing: I Have Housing Concerned About Future Housing: No Difficulty Paying Gas/Electric Bills: No Difficulty Paying for Meds: No Currently Unemployed: No Education: Master's Degree or Higher Difficulty w/ Childcare or Family Care: No Spiritual care concerns: No Comments At the time of my signature, I reviewed and agree with the nursing past medical, surgical, social, and family history. There is no relevant family history pertinent to the patient complaint. Exam Const: General: cooperative, healthy appearing, comfortable, no acute distress, well developed, alert and well nourished Nutritional Appearance: well nourished Orientation/consciousness: patient oriented x3 Limitations: no limitations HENMT: Head: normal to inspection Ears: hearing grossly normal bilaterally, external ears normal, EAC's normal, mastoids normal, no periauricular adenopathy and TM abnormal bulging on the left and wth effusion serous bilateral Face/Nose/Sinus: Normal external nose present, Normal nares present, Normal nasal mucous membranes and turbinates present, normal facial exam and face symmetric Face and sinus: normal facial exam and face
== END 2023-10-24 09:35 | disposition home or self-care (01) ==
PROVIDERS: Emergency Provider Nurse Practitioner; PCP Internal Medicine
DX: J06.9 Acute upper respiratory infection, unspecified (principal); H65.02 Acute serous otitis media, left ear; Z20.822 Contact with and (suspected) exposure to COVID-19
CPT/HCPCS: 87426; 87804; 99213; C9803; G0463

== ENCOUNTER 2024-09-02 13:31 | Outpatient (CLI) | payer MEDICARE, SELFPAY ==
--- NOTE | ~2024-09-02 | MM_ITS ---
EXAMINATION: MM screening scott BI w flora HISTORY: Screening TECHNIQUE: Craniocaudal and mediolateral oblique 3-D tomosynthesis images were obtained and synthetic 2-D images were generated. CAD analysis was submitted and interpreted. COMPARISON: 05/29/2023 BREAST PARENCHYMAL COMPOSITION: Not Dense: The breasts are almost entirely fatty. FINDINGS: There is no evidence of suspicious mass, calcification, or architectural distortion to sugg est malignancy in either breast. There has been no suspicious interval change. IMPRESSION: 1. No mammographic evidence of malignancy. 2. Recommend routine screening mammography in one year. BI-RADS Category 1: Negative Reviewed, dictated and finalized at location B. [employer]
== END 2024-09-02 13:32 | disposition home or self-care (01) ==
PROVIDERS: PCP Internal Medicine; Visit Provider Internal Medicine
DX: Z12.31 Encounter for screening mammogram for malignant neoplasm of breast (principal)
CPT/HCPCS: 77063; 77067

== ENCOUNTER 2024-10-21 08:20 | Emergency (ER) | payer MEDICARE, SELFPAY ==
--- NOTE | ~2024-10-21 | XR_ITS ---
XR chest 2V Ordering provider: Zachariah Kenyon APRN History: 74 years Female with . non-productive cough and fatigue x 6 days . Comparison: August 23, 2022 FINDINGS: MEDIASTINUM: The cardiac silhouette is not enlarged. LUNGS: No pneumothorax. Opacification in the right lower lobe area with possible effusion is noted. OTHER: No free air under the diaphragm. Degenerative spine. IMPRESSION: Right basilar atelectasis versus pneumonia with minimal effusion. Reviewed, dictated and finalized at location A. [employer]
--- NOTE | 2024-10-21 08:25 | ED.URI ---
HPI - URI/Sore Throat General Chief Complaint: Upper Respiratory Infection Stated Complaint: Fatigue, Coughing, Ear clogged Time Seen by Provider: 10/21/24 08:25 Source: patient Mode of arrival: ambulatory Limitations: no limitations History of Present Illness HPI Narrative: Joana is a 74-year-old female patient presenting to the clinic today with complaints of fatigue, cough, and feeling as though her ears are clogged x6 days. She reports no URI symptoms. Does have cough worse with laying flat. Cough is nonproductive. Feeling fatigued starting on Friday and has gradually gotten worse. Also feels as though both of her ears are clogged. Denies any fevers, chills, or body aches. Has reported an approximate 6 lb weight loss over the last 6 days. States that she is nauseated and does not have an appetite. MD elicited complaint: sore throat and nasal congestion Related Data Home Medications ?Medication ?Instructions ?Recorded ?Confirmed ?Last Taken ?Type cyclosporine 0.05 % eye drops in a 1 drp EACH EYE Q12H 08/23/22 10/21/24 08/23/22 08:00 History dropperette (Restasis) ezetimibe 10 mg tablet 10 mg PO QAM 08/23/22 10/21/24 Unknown History pravastatin 20 mg tablet 20 mg PO HS 08/23/22 10/21/24 08/22/22 21:00 History levothyroxine 50 mcg tablet 50 mcg PO DAILY 10/24/23 10/21/24 Unknown History omeprazole 20 mg capsule,delayed mg 10/21/24 Unknown History release Allergies Allergy/AdvReac Type Severity Reaction Status Date / Time levofloxacin (From Levaquin) Allergy Severe Rash Verified 10/21/24 08:31 amoxicillin Allergy Mild rash Verified 10/21/24 08:31 Review of Systems Review of Systems: Pertinent positives per HPI. Patient denies any fever, chills, rash, headache, visual changes, dizziness, shortness of breath, chest pain, palpitations, nausea, vomiting, diarrhea, constipation, abdominal pain, or any urinary issues. PMFSH Past Medical History Medical History Dermatomyositis Surgical History Surgical History No pertinent past surgical history Family History Family History Father Diabetes mellitus Chronic ITP (idiopathic thrombocytopenia) Grandparent Diabetes mellitus Social History Social History Smoking status: Never smoker Alcohol intake: current Drinks per week: 12 Substance use: never Lack of Transportation: No Lack of Food: Never True Current Housing: I Have Housing Concerned About Future Housing: No Difficulty Paying Gas/Electric Bills: No Difficulty Paying for Meds: No Currently Unemployed: No Education: Master's Degree or Higher Difficulty w/ Childcare or Family Care: No Spiritual care concerns: No Comments At the time of my signature, I reviewed and agree with the nursing past medical, surgical, social, and family history. There is no relevant family history pertinent to the patient complaint. Exam Narrative: General: Well-developed, well nourished, in no apparent distress Head: Normocephalic, atraumatic Eyes: Pupils equally round and reactive to light bilaterally, EOM intact, sclera and conjunctive clear, no discharge, lids normal Ears: TMs intact and clear, ear canals clear, no drainage, grossly hearing normal. Nose: Nares patent, no discharge, no inflammation, no sinus tenderness. Mouth: Oral pharynx without lesions or masses, good dentition, MMM. Neck: Supple, trachea midline, no enlargement of anterior or posterior cervical nodes, no thyroid masses or goiter palpable. Cardio: Regular rate and rhythm, s1 and s2 normal, no murmur appreciated. Resp: Crackles heard over the right mid lower lobes posteriorly, no rhonchi, wheezing or rubs Course Course Emergency Course: Portions of this record may have been created with voice recognition software. Level of Care: Express Care Visit Vital Signs Vital signs: Vital Signs Temperature 36.8 C 10/21/24 08:36 Pulse Rate 118 H 10/21/24 08:36 Respiratory Rate 16 10/21/24 08:36 Blood Pressure 107/76 10/21/24 08:36 Pulse Oximetry 96 10/21/24 08:36 Temperature 36.8 C 10/21/24 08:36 Pulse Rate 118 H 10/21/24 08:36 Respiratory Rate 16 10/21/24 08:36 Blood Pressure 107/76 10/21/24 08:36 Pulse Oximetry 96 10/21/24 08:36 Vital signs reviewed Procedures Ear Wax Removal Both Ears: Ear Wax Removal Date: 10/21/24 Results: Re-examined: cerumen removed completely TM Examination: TM(s) intact, normal appearance Ear Canal Exam: atraumatic Patient Tolerated Procedure: well and no complications Complications: no problems Technique: ear canal irrigated and ear canal curetted Additional Comments: Verbal consent obtained for ear irrigation. Risk and benefits explained and patient voiced understanding. Ear irrigation performed using an elephant ear and spray water bottle. Mixture of 1/2 peroxide 1/2 water used to irrigate ear canal. Cerumen impaction cleared and TM visualized without redness. Lighted curette was used to remove the cerumen from the external outter ear canal Grossly hearing normal. Patient tolerated procedure well MDM - URI/Sore Throat MDM Narrative Medical decision making narrative: At the time of visit patient is resting comfortably on the exam table. Patient appears to be nontoxic. Diagnostics: Chest x-ray shows right basilar atelectasis versus pneumonia with minimal effusion Procedures: Ear lavage was performed successfully bilaterally using irrigation and lighted curette Plan: I suspect patient may likely have right lower lobe pneumonia. Does have minimal effusion. Will have the patient follow-up with her primary care doctor next week. Will place her on albuterol inhaler, give her incentive spirometer, azithromycin and cefpodoxime. Cerumen impaction procedure was performed in the clinic today and was successful. Supportive measures were discussed with the patient and they voiced understanding discharge instructions and agrees to treatment plan. Return precautions reviewed Differential Diagnosis Differential diagnosis: Likely upper respiratory infection, otitis media, sinusitis, viral infection, bronchitis, influenza, pharyngitis and other (COVID) Lab Data Labs: Lab Results 10/21/24 Range/Units 09:19 POC Influenza A Ag Negative (Negative) POC Influenza B Ag Negative (Negative) POC SARS CoV-2 Ag Negative (Negative) Imaging Data Radiologist's impression: ITS Impressions Chest X-Ray 10/21/24 08:57 IMPRESSION: Right basilar atelectasis versus pneumonia with minimal effusion. Discharge Plan Discharge Clinical Impression: Right lower lobe pneumonia Qualifiers: Pneumonia type: due to unspecified organism Qualified Code(s): J18.9 - Pneumonia, unspecified organism Cerumen impaction Qualifiers: Laterality: right Qualified Code(s): H61.21 - Impacted cerumen, right ear Patient Disposition: Home, Self-Care Condition: Stable Instructions: Antibiotic Form, How to Use an Incentive Spirometer (ED), Pneumonia (ED) Additional Instructions: Chest x-ray shows right basilar atelectasis versus pneumonia with minimal effusion-no heart enlargement Cerumen impaction removal was performed successfully COVID and influenza testing was negative. Take prescription medications only as prescribed-albuterol inhaler,cefpodoxime, and azithromycin Use incentive spirometer every 2 hours while awake Increase fluids and stay well hydrated Tylenol/motrin for pain/fever Flonase and OTC antihistamines as directed Vicks vapor rub to open sinuses Sinus rinses for congestion Cepacol spray, cough drops, throat lozenges, warm tea with honey/lemon, gargle salt water to soothe throat BRAT diet for diarrhea Clear liquids x 24 hours then advance as tolerated for nausea/vomiting Go to the ED if you develop a worsening in your condition- high fever not controlled by Tylenol or Motrin, dehydration, weakness, lethargy, shortness of breath, or chest pain. Follow up with your PCP in 3-5 days if symptoms persist. Patient Language: Beninese Prescriptions: New cefpodoxime 200 mg tablet 200 mg PO BID 7 Days Qty: 14 0RF Rx Instructions: must administer with a meal/food azithromycin 250 mg tablet See Rx Instructions .ROUTE .COMPLEX Qty: 6 0RF Rx Instructions: For 250 mg dose pack: take 500 mg today (day 1), then 250 mg for 4 days (days 2-5) albuterol sulfate 90 mcg/actuation HFA aerosol inhaler 2 puff inhalation Q4-6H PRN (Reason: shortness of breath or wheezing) 30 Days Qty: 8.5 0RF No Action levothyroxine 50 mcg tablet 50 mcg PO DAILY omeprazole 20 mg capsule,delayed release(DR/EC) pravastatin 20 mg tablet 20 mg PO HS ezetimibe 10 mg tablet 10 mg PO QAM cyclosporine [Restasis] 0.05 % Dropperette 1 drp EACH EYE Q12H Follow-up/Referrals: UNKNOWN,DOCTOR [Primary Care Provider] - Time of Disposition: 09:25 [facility] Nursing Documentation ED NIHSS nursing documentation: reviewed/agree
[2024-10-21 08:36] VITALS: BP 107/76; PULSE 118; RESP 16; TEMP 36.8; O2SAT 96
[2024-10-21 09:21] LABS: EDCOVIDSCREEN Negative (Negative); EDINFLUASCREEN Negative (Negative); EDINFLUBSCREEN Negative (Negative)
== END 2024-10-21 09:37 | disposition home or self-care (01) ==
PROVIDERS: Emergency Provider Nurse Practitioner Family
DX: J18.1 Lobar pneumonia, unspecified organism (principal); H61.23 Impacted cerumen, bilateral; Z20.822 Contact with and (suspected) exposure to COVID-19
CPT/HCPCS: 69209; 71046; 87426; 87804; 99213; G0463

== ENCOUNTER 2025-08-08 08:20 | Emergency (ER) | payer MEDICARE, SELFPAY ==
--- NOTE | ~2025-08-08 | XR_ITS ---
EXAMINATION: XR chest 2V DATE: 08/08/2025 08:57 INDICATION: Cough and fatigue TECHNIQUE: frontal and lateral views of the chest were obtained. COMPARISON: Chest radiograph dated 10/21/2024 FINDINGS: Unchanged mild bibasilar atelectasis. No pulmonary edema, pleural effusion or pneumothorax. The cardiomediastinal silhouette is normal. Surgical clip projecting over the right breast and right upper quadrant. IMPRESSION: 1. Mild bibasilar atelectasis. Reviewed, dictated and finalized at location A.
[2025-08-08 08:31] VITALS: BP 124/75; PULSE 96; RESP 16; TEMP 37.1; O2SAT 94
--- NOTE | 2025-08-08 08:48 | ED.URI ---
HPI - URI/Sore Throat General Chief Complaint: Upper Respiratory Infection Stated Complaint: Sinus Infection Symptoms Time Seen by Provider: 08/08/25 08:30 Source: patient and RN notes reviewed Mode of arrival: ambulatory Limitations: no limitations History of Present Illness HPI Narrative: 75-year-old female presents Express Care complaining of cough, congestion, fatigue chills, tactile fevers for approximately 7 days. Patient said she was on a plane 7 days ago returning from [place] is [place]. Patient since then develops symptoms. Patient says symptoms got significantly worse this morning cough, reporting worsening cough, congestion, and headaches. Patient taking NyQuil to help with symptoms. Patient denies any significant past medical history. Patient denies any chest pain, shortness of breath, nausea, vomiting, diarrhea, or any other symptoms. Related Data Home Medications ?Medication ?Instructions ?Recorded ?Confirmed ?Last Taken ?Type cyclosporine 0.05 % eye drops in a 1 drp EACH EYE Q12H 08/23/22 10/21/24 08/23/22 08:00 History dropperette (Restasis) ezetimibe 10 mg tablet 10 mg PO QAM 08/23/22 10/21/24 Unknown History pravastatin 20 mg tablet 20 mg PO HS 08/23/22 10/21/24 08/22/22 21:00 History levothyroxine 50 mcg tablet 50 mcg PO DAILY 10/24/23 10/21/24 Unknown History omeprazole 20 mg capsule,delayed mg 10/21/24 Unknown History release Allergies Allergy/AdvReac Type Severity Reaction Status Date / Time levofloxacin (From [facility]) Allergy Severe Rash Verified 08/08/25 08:38 amoxicillin Allergy Mild rash Verified 08/08/25 08:38 Review of Systems Review of Systems: CONSTITUTIONAL: Positive for tactile fevers and chills. Negative for body aches or sweats. EYES: Denies visual changes, redness, or discharge. ENT: Denies rhinorrhea, sore throat, or otalgia. Positive for congestion. CARDIOVASCULAR: Denies chest pain, palpitations, or edema. RESPIRATORY: Positive for cough. Negative for wheezing or Dyspnea. GASTROINTESTINAL: Denies abdominal pain, nausea, vomiting, or diarrhea. GENITOURINARY: Denies dysuria or hematuria. SKIN: Denies rash or itching. MUSCULOSKELETAL: Denies back pain, joint pain, or myalgia. NEUROLOGIC: Positive for headaches. Negative for numbness, or weakness. PSYCHIATRIC: Denies anxiety or depression. All other systems reviewed are negative, except as documented in HPI. [facility] Past Medical History Medical History Dermatomyositis Surgical History Surgical History No pertinent past surgical history Family History Family History Father Diabetes mellitus Chronic ITP (idiopathic thrombocytopenia) Grandparent Diabetes mellitus Social History Social History Smoking status: Never smoker Alcohol intake: current Drinks per week: 12 Substance use: never Lack of Transportation: No Lack of Food: Never True Current Housing: I Have Housing Concerned About Future Housing: No Difficulty Paying Gas/Electric Bills: No Difficulty Paying for Meds: No Currently Unemployed: No Education: Master's Degree or Higher Difficulty w/ Childcare or Family Care: No Spiritual care concerns: No Comments At the time of my signature, I reviewed and agree with the nursing past medical, surgical, social, and family history. There is no relevant family history pertinent to the patient complaint. Exam Narrative: GENERAL: This is a well-nourished, well-developed adult, in no apparent distress. They are non ill-appearing, nontoxic appearing. HEAD: normocephalic, atraumatic. EYES: Sclera clear/white. Conjunctiva normal. Vision is grossly intact. Extraocular movements intact EARS: External ears normal, auditory canals clear and without drainage, TMs normal without perforation. Hearing grossly intact. NOSE: External nose normal with no obvious nasal discharge, nasal turbinates erythematous, no rhinorrhea. Maxillary sinus tenderness to palpation. THROAT: Mucous membranes moist, posterior pharynx boggy without erythema. Uvula midline. Postnasal drip present. NECK: Neck supple, non-tender without lymphadenopathy, masses or thyromegaly. CARDIOVASCULAR: Regular rate and rhythm without murmurs, gallops, or rubs. RESPIRATORY: Right lower lobe diminished. Breath sounds equal bilaterally. No wheezes, rales, or rhonchi. Respiratory rate normal, respiratory effort nonlabored, no respiratory distress SKIN: warm, Dry, intact with no suspicious lesions or rash, good texture and turgor. NEURO: awake, alert, and oriented to person, place and time. There were no obvious focal neurologic abnormalities. EXTREMITIES: No joint tenderness, effusion, or edema noted. BACK: Nontender without deformity. No CVA tenderness. Course Course Emergency Course: Portions of this record may have been created with voice recognition software Level of Care: Express Care Visit Vital Signs Vital signs: Vital Signs Temperature 98.8 F 08/08/25 08:31 Pulse Rate 96 08/08/25 08:31 Respiratory Rate 16 08/08/25 08:31 Blood Pressure 124/75 08/08/25 08:31 Pulse Oximetry 94 08/08/25 08:31 Oxygen Delivery Room Air 08/08/25 08:31 Temperature 98.8 F 08/08/25 08:31 Pulse Rate 96 08/08/25 08:31 Respiratory Rate 16 08/08/25 08:31 Blood Pressure 124/75 08/08/25 08:31 Pulse Oximetry 94 08/08/25 08:31 Oxygen Delivery Room Air 08/08/25 08:31 Reviewed MDM - URI/Sore Throat MDM Narrative Medical decision making narrative: Chest x-ray shows chronic atelectasis, unchanged from previous chest x-ray. No evidence of any acute cardiopulmonary findings. Given patient's length of symptoms of worsening symptoms likely she has developed a bacterial sinusitis. Will treat with doxycycline. Will also prescribe benzonatate tablets as needed for cough. Discussed physical exam findings. Advised supportive measures and signs/symptoms to go to the ER. Pt is appropriate for outpt treatment and f/u. Differential Diagnosis Differential diagnosis: Likely upper respiratory infection, sinusitis, viral infection, bronchitis and other (Pneumonia) Imaging Data Radiologist's impression: ITS Impressions Chest X-Ray 08/08/25 08:58 IMPRESSION: 1. Mild bibasilar atelectasis. Critical Care Time Critical Care Time Critical Care Time: No Discharge Plan Discharge Clinical Impression: Sinusitis Qualifiers: Sinusitis location: unspecified location Chronicity: acute Recurrence: non-recurrent Qualified Code(s): J01.90 - Acute sinusitis, unspecified Patient Disposition: Home Condition: Stable Instructions: Antibiotic Form, Sinusitis (ED) Additional Instructions: Take the antibiotics as directed and complete the course even if you start to feel better. Please wear sunscreen if you are going to be outside while taking doxycycline. You may use a Neti pot saline rinse 3 times a day with lukewarm distilled water Tylenol or ibuprofen as needed for pain or fevers. You may take ibuprofen 600 mg to 800 mg every 6-8 hours. Do not exceed more than 800 mg of ibuprofen per dose. Do not exceed more than 3200 mg ibuprofen in a day. You may take up to 1000 mg Tylenol every 6-8 hours. Do not exceed 1000 mg per dose, do exceed more than 4000 mg of Tylenol in a day. Take benzonatate tablets as needed for cough. Use a humidifier or vaporizer at night. Drink plenty of water. 8-10 glasses per day. Use flonase 2 times per day for 5 days then as needed Take mucinex 2 times per day and be sure to take with 8oz of water. Follow up with Primary provider in 3-5 days Please go to the ER if he develops any difficulty breathing, worsening symptoms, chest pains, nausea, vomiting, confusion or any other serious concerns Patient Language: Bengali Prescriptions: New benzonatate 100 mg capsule 100 mg PO TID PRN (Reason: cough) Qty: 20 0RF doxycycline monohydrate 100 mg capsule 100 mg PO BID 7 Days Qty: 14 0RF No Action levothyroxine 50 mcg tablet 50 mcg PO DAILY omeprazole 20 mg capsule,delayed release(DR/EC) cefpodoxime 200 mg tablet 200 mg PO BID 7 Days Qty: 14 0RF Rx Instructions: must administer with a meal/food azithromycin 250 mg tablet See Rx Instructions .ROUTE .COMPLEX Qty: 6 0RF Rx Instructions: For 250 mg dose pack: take 500 mg today (day 1), then 250 mg for 4 days (days 2-5) albuterol sulfate 90 mcg/actuation HFA aerosol inhaler 2 puff inhalation Q4-6H PRN (Reason: shortness of breath or wheezing) 30 Days Qty: 8.5 0RF pravastatin 20 mg tablet 20 mg PO HS ezetimibe 10 mg tablet 10 mg PO QAM cyclosporine [Restasis] 0.05 % Dropperette 1 drp EACH EYE Q12H Follow-up/Referrals: Kimi,Dustin Scott MD [Primary Care Provider] Time of Disposition: 09:17
== END 2025-08-08 09:22 | disposition home or self-care (01) ==
PROVIDERS: PCP Internal Medicine
DX: J01.90 Acute sinusitis, unspecified (principal)
CPT/HCPCS: 71046; 99213; G0463